=== PATIENT | male | born 1985 | race Two or more races ===

== ENCOUNTER 2017-02-21 14:05 | Emergency (ER) | payer BC, OTHER ==
[2017-02-21 14:18] VITALS: BP 116/68; PULSE 72; TEMP 98; BMI 43.0
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
== END 2017-02-21 15:37 | disposition home or self-care (01) ==
LOC: JERFT 14:05
PROC: 2W38X1Z Immobilization of Right Upper Extremity using Splint (ICD-10-PCS; principal; 2017-02-21)
DX: S62.396A Other fracture of fifth metacarpal bone, right hand, initial encounter for closed fracture (principal); W22.8XXA Striking against or struck by other objects, initial encounter; Y93.89 Activity, other specified; Y92.038 Other place in apartment as the place of occurrence of the external cause
CPT/HCPCS: 73130-TC-RT; 99282-25

== ENCOUNTER 2017-10-04 09:53 | Emergency (ER) | payer OTHER ==
[2017-10-04 10:11] VITALS: BP 117/68; PULSE 80; TEMP 98.5; BMI 40.7
--- NOTE | 2017-10-04 11:25 | PDOC ---
History of Present Illness - General Chief Complaint: Headache Stated Complaint: SEVERE HEAD PRESSURE Time Seen by Provider: 10/04/17 11:09 History Source: Patient Exam Limitations: No Limitations - History of Present Illness Initial Comments: CHIEF COMPLAINT: 32 y/o afebrile male with no significant PMH c/o posterior head pressure since yesterday. HISTORY OF PRESENT ILLNESS: The patient states he was not doing anything strenuous. AFter the pain started he took a nap but when he woke up it was still present. He is concerned because his mother had an anyeurism and she had similar symptoms. He took a naproxen and had slight relief. He denies changes in vision/hearing, f/c, n/v/d, cough, head trauma, LOC. Vital signs on arrival are within normal limits. REVIEW OF SYSTEMS: GENERAL/CONSTITUTIONAL: No fever/chills. No weakness. No weight change. HEAD, EYES, EARS, NOSE AND THROAT: No change in vision. No ear pain or discharge. No sore throat. CARDIOVASCULAR: No chest pain or shortness of breath. RESPIRATORY: No cough, wheezing, or hemoptysis. GASTROINTESTINAL: No abd pain, nausea, vomiting, diarrhea. GENITOURINARY: No dysuria, frequency, or change in urination. MUSCULOSKELETAL: No joint or muscle swelling or pain. No neck or back pain. SKIN: No rash or easy bruising. NEUROLOGIC: +head pressure. No vertigo, loss of consciousness, or loss of sensation. PHYSICAL EXAM: GENERAL: The patient is awake, alert, and fully oriented, in no acute distress. He is very well appearing, ambulatory, in NAD or obvious discomfort. HEAD: Normal with no signs of trauma. No hematomas. NECK: Reproducible pain with palpation of b/l cervical spine paravertebral muscles. ENT: Pupils equal, round and reactive to light, extraocular movements intact, sclera anicteric, conjunctiva clear. No pain with EOMs. LUNGS: Clear to auscultation bilaterally. Normal excursion. No respiratory distress or use of accessory muscles. CV: RRR, S1/S2, no MRG. Cap refill < 2 sec. ABDOMEN: Soft, non-distended, non-tender even to deep palpation, no hepatomegaly or splenomegaly, no masses. EXTREMITIES: Normal range of motion, no edema. NEUROLOGICAL: Normal speech, normal gait. CN II-XII grossly intact. PSYCH: Normal mood, normal affect. SKIN: Warm, dry, normal turgor, no rashes or lesions noted. Past History - Past Medical History Allergies/Adverse Reactions: Allergies Allergy/AdvReac Type Severity Reaction Status Date / Time No Known Allergies Allergy Verified 10/04/17 10:07 Home Medications: Ambulatory Orders NK [No Known Home Medication] 11/12/15 CVA: No COPD: No DVT: No - Immunization History Immunization Up to Date: Yes - Suicide/Smoking/Psychosocial Hx Smoking Status: No Smoking History: Never smoked Have you smoked in the past 12 months: No Number of Cigarettes Smoked Daily: 0 Information on smoking cessation initiated: No Hx Alcohol Use: No Drug/Substance Use Hx: No Substance Use Type: None *Physical Exam - Vital Signs Last Vital Signs Temp Pulse Resp BP Pulse Ox 98.5 F 80 16 117/68 97 10/04/17 10:08 10/04/17 10:08 10/04/17 10:08 10/04/17 10:08 10/04/17 10:08 Medical Decision Making - Medical Decision Making A/P: 32 y/o male with posterior head pressure since yesterday concerned for anyeurism because his mother had one. Patient states he would rather be safe than sorry and have a CT of his head. Plan is as follows: 1. Head CT Head CT IMPRESSION: No [id number] of acute intracranial hemorrhage. No mass effects, midline shift or hydrocephalus. Cerebral aneurysm cannot be excluded on non contrast CT. Gave the patient the results. Do suspect his pain is musculoskeletal in nature. Suggested he continue taking Naproxen if it helps and f/u with his PCP. Instructed him to return to the ER immediately if he experiences the "worst headache of his life" or any other concerning symptoms. The patient verbalizes understanding of all instructions, has no further questions and is awaiting discharge. *DC/Admit/Observation/Transfer Diagnosis at time of Disposition: Pressure in head, Neck strain - Discharge Dispostion Disposition: HOME Condition at time of disposition: Good - Referrals - Patient Instructions Printed Discharge Instructions: DI for Neck Sprain, How To Perform RICE (Rest, Ice, Compress, Elevate), DI for Headache Additional Instructions: Discharge Instructions: -The CT scan of your head was normal -Take Naproxen if it helps for pain -Follow RICE instructions -Follow up with your doctor within 1 week -Return to the ER with any worsening or concerning symptoms, including "worst headache of your life". - Post Discharge Activity
== END 2017-10-04 12:36 | disposition home or self-care (01) ==
LOC: JERFT 09:53
DX: S16.1XXA Strain of muscle, fascia and tendon at neck level, initial encounter (principal); X58.XXXA Exposure to other specified factors, initial encounter; Y93.9 Activity, unspecified; Y92.9 Unspecified place or not applicable
CPT/HCPCS: 70450-TC; 99281-25

== ENCOUNTER 2017-11-03 09:17 | Emergency (ER) | payer OTHER ==
[2017-11-03 09:30] VITALS: BP 125/74; PULSE 86; TEMP 99.2; BMI 42.3
--- NOTE | 2017-11-03 10:39 | PDOC ---
History of Present Illness - General Chief Complaint: Cold Symptoms Stated Complaint: FEVER, CHILLS Time Seen by Provider: 11/03/17 10:36 History Source: Patient Exam Limitations: No Limitations Past History - Past Medical History Allergies/Adverse Reactions: Allergies Allergy/AdvReac Type Severity Reaction Status Date / Time No Known Allergies Allergy Verified 11/03/17 09:27 Home Medications: Ambulatory Orders Ibuprofen 800 mg PO TID #30 tablet 11/03/17 Oseltamivir Phosphate [Tamiflu] 75 mg PO BID #10 capsule 11/03/17 CVA: No COPD: No DVT: No - Immunization History Immunization Up to Date: Yes - Suicide/Smoking/Psychosocial Hx Smoking Status: No Smoking History: Never smoked Have you smoked in the past 12 months: No Number of Cigarettes Smoked Daily: 0 Information on smoking cessation initiated: No Hx Alcohol Use: No Drug/Substance Use Hx: No Substance Use Type: None *Physical Exam - Vital Signs Last Vital Signs Temp Pulse Resp BP Pulse Ox 99.2 F 86 17 125/74 97 11/03/17 09:27 11/03/17 09:27 11/03/17 09:27 11/03/17 09:27 11/03/17 09:27 *DC/Admit/Observation/Transfer Diagnosis at time of Disposition: Flu-like symptoms - Discharge Dispostion Disposition: HOME Condition at time of disposition: Stable Admit: No - Referrals Referrals: Fuad Marie MD [Primary Care Provider] - - Patient Instructions Printed Discharge Instructions: DI for Influenza -- Adult Additional Instructions: You most likely has the flu. This will last approximately 7-10 days. It is a virus and should go away on its own. Your prescribed Tamiflu. Please take this medication twice a day for the next 5 days to help reduce the symptoms of the flu. Please take Motrin 800 mg 3 times a day to help with fever or body aches. He may take [id number] cough and congestion medication as needed. Please drink plenty of fluids. Follow up with her primary care doctor in 1 week. Return to the emergency department if you have shortness of breath, difficulty breathing, wheezing, are not eating and drinking well, or have any changes in your symptoms. - Post Discharge Activity Forms/Work/School Notes: Back to Work
== END 2017-11-03 10:57 | disposition home or self-care (01) ==
LOC: JERFT 09:17
DX: J11.1 Influenza due to unidentified influenza virus with other respiratory manifestations (principal)
CPT/HCPCS: 99281-25

== ENCOUNTER 2018-08-03 10:07 | Emergency (ER) | payer OTHER ==
[2018-08-03 10:29] VITALS: BP 124/64; PULSE 75; TEMP 98.2; BMI 43.0
[2018-08-03] MEDS ORDERED: IBUPROFEN 600 MG TABLET (FP) PO ONE ×2 (11:01→11:08)
--- NOTE | 2018-08-03 11:38 | PDOC ---
History of Present Illness - General Chief Complaint: Injury Stated Complaint: ANKLE PAIN Time Seen by Provider: 08/03/18 10:50 History Source: Patient Exam Limitations: No Limitations - History of Present Illness Initial Comments: 08/03/18 11:33 CHIEF COMPLAINT: Foot pain HISTORY OF PRESENT ILLNESS: This is a 33-year-old male with no significant past medical history who presents complaining of right foot pain for 1 month. He initially injured his foot by everting his ankle while stepping off of one stair one month ago. Since then he has had intermittent pain on the dorsal aspect of his foot, for example when standing up after crouching on the floor. He has been ambulatory with full weight-bearing. He has been taking Motrin with some relief of the pain. REVIEW OF SYSTEMS: GENERAL/CONSTITUTIONAL: No fever or chills. No weakness. No weight change. MUSCULOSKELETAL: See HPI. SKIN: No rash or easy bruising. NEUROLOGIC: No loss of sensation. HEMATOLOGIC/LYMPHATIC: No anemia, easy bleeding, or history of blood clots. ALLERGIC/IMMUNOLOGIC: No hives or skin allergy. No latex allergy. PHYSICAL EXAM: GENERAL: The patient is awake, alert, and fully oriented, in no acute distress. EXTREMITIES: Normal range of motion, no edema. No tenderness at lateral or medial malleolus. Mild tenderness over right navicular bone. NEUROLOGICAL: Normal speech, normal gait. CN II-XII grossly intact. PSYCH: Normal mood, normal affect. SKIN: Warm, dry, normal turgor, no rashes or lesions noted. Past History - Past Medical History Allergies/Adverse Reactions: Allergies Allergy/AdvReac Type Severity Reaction Status Date / Time No Known Allergies Allergy Verified 11/03/17 09:27 Home Medications: Ambulatory Orders Ibuprofen 800 mg PO TID #30 tablet 11/03/17 Oseltamivir Phosphate [Tamiflu] 75 mg PO BID #10 capsule 11/03/17 CVA: No COPD: No DVT: No - Immunization History Immunization Up to Date: Yes - Suicide/Smoking/Psychosocial Hx Smoking Status: No Smoking History: Never smoked Have you smoked in the past 12 months: No Number of Cigarettes Smoked Daily: 0 Information on smoking cessation initiated: No Hx Alcohol Use: No Drug/Substance Use Hx: No Substance Use Type: None *Physical Exam - Vital Signs Last Vital Signs Temp Pulse Resp BP Pulse Ox 98.2 F 75 16 124/64 100 08/03/18 10:27 08/03/18 10:27 08/03/18 10:27 08/03/18 10:27 08/03/18 10:27 ED Treatment Course - RADIOLOGY Radiology Studies Ordered: Category Date Time Status ANKLE & FOOT-RIGHT* [RAD] Stat Radiology 08/03/18 10:58 Completed - Medications Given in the ED: ED Medications Discontinued Medications Generic Name Dose Route Start Last Admin Trade Name Linn PRN Reason Stop Dose Admin Ibuprofen 600 mg 08/03/18 11:01 08/03/18 11:06 Motrin - PO 08/03/18 11:02 600 mg ONCE ONE Administration Medical Decision Making - Medical Decision Making 08/03/18 11:37 A/P: 33-year-old male with intermittent foot pain for 1 month after twisting ankle. 1. X-ray reviewed: Some suggestion of swelling of lateral malleolus, however this is not where pain is located. No fractures. 2. Ibuprofen for pain 3. Orthopedic follow-up if symptoms continue *DC/Admit/Observation/Transfer Diagnosis at time of Disposition: Sprain of foot, right Qualifiers: Encounter type: initial encounter Qualified Code(s): S93.601A - Unspecified sprain of right foot, initial encounter - Discharge Dispostion Disposition: HOME Condition at time of disposition: Stable Decision to Admit order: No - Referrals Referrals: Fuad Marie MD [Primary Care Provider] - Anand Merchant MD [Staff Physician] - 14 days (Orthopedics if not improving) - Patient Instructions Printed Discharge Instructions: DI for Foot Sprain Additional Instructions: -Continue ice and Motrin as needed for pain -Follow up with orthopedics if pain is not improving -Return for any new or concerning symptoms - Post Discharge Activity
== END 2018-08-03 11:52 | disposition home or self-care (01) ==
LOC: JER 10:07
DX: S93.601A Unspecified sprain of right foot, initial encounter (principal); X50.1XXA Overexertion from prolonged static or awkward postures, initial encounter; Y93.89 Activity, other specified; Y92.89 Other specified places as the place of occurrence of the external cause; Y99.8 Other external cause status
CPT/HCPCS: 73610-TC-RT-FY; 73630-TC-RT-FY; 99281-25

== ENCOUNTER 2018-12-16 16:09 | Emergency (ER) | payer OTHER ==
[2018-12-16 16:19] VITALS: BP 125/71; PULSE 83; TEMP 98.4; BMI 43.8
[2018-12-16] MEDS ORDERED: IBUPROFEN 600 MG TABLET (FP) PO ONE ×2 (17:42→18:18)
--- NOTE | 2018-12-16 18:13 | PDOC ---
History of Present Illness - General Chief Complaint: Pain, Acute Stated Complaint: CHEST PAIN Time Seen by Provider: 12/16/18 16:51 History Source: Patient Exam Limitations: No Limitations - History of Present Illness Initial Comments: 12/16/18 18:09 33 yo M w/ a h/o rotator cuff tear 5-6 yrs ago, who works for the [employer], comes in c/o L sided shoulder and clavicle pain for the past 2 days which is provoked with movement. No numbness/tingling/weakness, no chest pain, no neck pain, no headache, no fever/chills, no NVD, no cough, no URI symptoms, no shortness of breath, no palpitations, no back pain, no recent fall/trauma. Pt took tylenol which has not helped much 12/16/18 18:11 Past History - Past Medical History Allergies/Adverse Reactions: Allergies Allergy/AdvReac Type Severity Reaction Status Date / Time No Known Allergies Allergy Verified 12/16/18 16:19 Home Medications: Ambulatory Orders NK [No Known Home Medication] 12/16/18 CVA: No COPD: No DVT: No - Immunization History Immunization Up to Date: Yes - Suicide/Smoking/Psychosocial Hx Smoking Status: No Smoking History: Never smoked Have you smoked in the past 12 months: No Number of Cigarettes Smoked Daily: 0 Hx Alcohol Use: No Drug/Substance Use Hx: No Substance Use Type: None Review of Systems - Review of Systems Able to Perform ROS?: Yes Constitutional: No: Chills, Fever, Malaise, Night Sweats HEENTM: No: Eye Pain, Recent change in vision, Throat Pain Respiratory: No: Cough, Shortness of Breath Cardiac (ROS): No: Chest Pain, Palpitations, Chest Tightness ABD/GI: No: Diarrhea, Nausea, Vomiting, Abdominal cramping : No: Dysuria, Hematuria Musculoskeletal: No: Back Pain Integumentary: No: Rash Neurological: No: Headache, Numbness, Dizziness Psychiatric: No: Change in Appetite Endocrine: No: Unexplained Weight Loss *Physical Exam - Vital Signs Last Vital Signs Temp Pulse Resp BP Pulse Ox 98.4 F 83 18 125/71 99 12/16/18 16:18 12/16/18 16:18 12/16/18 16:18 12/16/18 16:18 12/16/18 16:18 - Physical Exam General Appearance: Yes: Nourished. No: Apparent Distress HEENT: positive: JOVAN, Normal ENT Inspection, Normal Voice. negative: Pale Conjunctivae, Scleral Icterus (R), Scleral Icterus (L) Neck: positive: Supple. negative: Decreased range of motion, Tender midline Respiratory/Chest: positive: Lungs Clear, Normal Breath Sounds. negative: Respiratory Distress, Accessory Muscle Use Cardiovascular: positive: Regular Rhythm, Regular Rate Gastrointestinal/Abdominal: positive: Normal Bowel Sounds, Soft. negative: Tender Musculoskeletal: positive: Normal Inspection. 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 Full sensory function , equal pulses. L clavicle with mild tenderness at sternoclavicular joint. NO assymetry, no step offs felt.). negative: Tender, Pedal Edema Integumentary: positive: Normal Color, Dry. negative: Jaundice, Rash Neurologic: positive: Fully Oriented, Alert, Normal Mood/Affect ED Treatment Course - RADIOLOGY Radiology Studies Ordered: Category Date Time Status CLAVICLE-LEFT SIDE [RAD] Stat Radiology 12/16/18 17:41 Taken SHOULDER-W/TRANS-LEFT [RAD] Stat Radiology 12/16/18 17:41 Taken Medical Decision Making - Medical Decision Making 12/16/18 18:12 33 yo w/ Shoulder and clavicle pain, likely MSk. Will do an xray, give motrin and reassess, unlikely cardio-pulmonary. EKG done 12/16/18 19:01 Xray reviewed with April Leal, no acute fractures seen. Pt placed in a sling, he will follow up with Dr. Tran from orthopedics. Return for worsening/concerning symptoms Pt ambulating out of the ED in NAD *DC/Admit/Observation/Transfer Diagnosis at time of Disposition: Shoulder pain, left Qualifiers: Chronicity: acute Qualified Code(s): M25.512 - Pain in left shoulder - Discharge Dispostion Disposition: HOME Condition at time of disposition: Stable Decision to Admit order: No - Referrals Referrals: Fuad Marie MD [Primary Care Provider] - Sam Tran DO [Staff Physician] - - Patient Instructions Additional Instructions: Do not keep the sling on at all times. Take ibuprofen as needed for pain Follow up with Dr. Marie and Dr. Tran from orthopedics. - Post Discharge Activity
--- NOTE | 2018-12-18 10:18 | EKG ---
Test Reason : Blood Pressure : / mmHG Vent. Rate : 083 BPM Atrial Rate : 083 BPM P-R Int : 172 ms QRS Dur : 102 ms QT Int : 364 ms P-R-T Axes : 050 -06 012 degrees QTc Int : 427 ms NORMAL SINUS RHYTHM NORMAL ECG NO PREVIOUS ECGS AVAILABLE Confirmed by PATRICIA NAIK MD ([id number]) on 12/18/2018 10:18:05 AM Referred By: Confirmed By:PATRICIA NAIK MD
== END 2018-12-16 19:14 | disposition home or self-care (01) ==
LOC: JER 16:09
DX: M25.512 Pain in left shoulder (principal)
CPT/HCPCS: 73000-TC-LT-FY; 73030-TC-LT-FY; 93005; 93010; 99281-25